=== PATIENT | male | born 2000 | race Caucasian/White ===

== ENCOUNTER 2020-01-11 16:53 | Emergency (ER) | payer BC, MEDICAID ==
[~2020-01-11] VITALS: Ht 182 cm; Wt 59.8 kg
[~2020-01-11 16:53] MED LIST: ACHD5005 PO; CYCL5TAB PO
--- NOTE | 2020-01-11 17:22 | ED Cough/URI ---
General Stated Complaint: SOA / BODY ACHES Source: patient Exam Limitations: no limitations History of Present Illness Date Seen by Provider: Jan 11, 2020 Time Seen by Provider: 17:14 Initial Comments to ER with shortness of breath, headache,body aches that started 1.5 days ago. Sister was recently tested positive for COVID-19and he was exposed to her a few days before she was tested.. He is employed at [employer] in [place].he denies fevers. Timing/Duration: yesterday, getting worse Severity/Quality: dry cough Associated Symptoms: cough, nasal congestion, shortness of breath Allergies and Home Medications Allergies Coded Allergies: No Known Drug Allergies (Unverified , 02/16/15) Home Medications Cyclobenzaprine HCl 5 Mg Tablet, 0.5-1 TAB PO Q8H PRN for SPASMS Prescribed by: GADIEL YAO on 02/16/151831 Hydrocodone Bit/Acetaminophen 1 Each Tablet, 1 EACH PO Q4H PRN for PAIN Prescribed by: GADIEL YAO on 02/16/151831 Patient Home Medication List Home Medication List Reviewed: Yes Review of Systems Review of Systems Constitutional: see HPI, chills, malaise, weakness Respiratory: see HPI, cough, short of breath Cardiovascular: no symptoms reported Genitourinary: no symptoms reported Musculoskeletal: no symptoms reported Skin: no symptoms reported Psychiatric/Neurological: No Symptoms Reported Hematologic/Lymphatic: No Symptoms Reported Past Sdiltud-Famjgd-Ppqbcv Hx Immunizations Up To Date Tetanus Booster (TDap): Unknown Family Medical History No Pertinent Family Hx Physical Exam Capillary Refill : Height: 5'8" Weight: 138lbs. oz. [id number]; BMI Method: General Appearance: WD/WN, no apparent distress, other (heart rate is in the 90s, oxygen saturation 97-98% on room air no accessory muscle use or tachypnea) HEENT: PERRL/EOMI, normal ENT inspection Neck: non-tender, full range of motion Respiratory: lungs clear, normal breath sounds, no respiratory distress, no accessory muscle use Cardiovascular: regular rate, rhythm, no murmur Gastrointestinal: normal bowel sounds, non tender, soft Neurologic/Psychiatric: alert, normal mood/affect, oriented x 3 Skin: normal color, warm/dry Progress/Results/Core Measures Suspected Sepsis SIRS Temperature: Pulse: Respiratory Rate: Laboratory Tests 01/11/20 17:09: Blood Pressure / Mean: Laboratory Tests 01/11/20 17:09: Results/Orders Lab Results Laboratory Tests Test 01/11/20 17:09 Range/Units My Orders Orders - MARKEL BYRNES APRN Cbc With Automated Diff (01/11/20 17:12) Comprehensive Metabolic Panel (01/11/20 17:12) Hs C Reactive Protein (01/11/20 17:12) Fibrin Degradation Products (01/11/20 17:12) Chest 1 View, Ap/Pa Only (01/11/20 17:12) Coronavirus Sars-Cov-2 So 2018 (01/11/20 17:12) Vital Signs/I&O Capillary Refill : Departure Impression Primary Impression: Viral syndrome Disposition: HOME, SELF-CARE Condition: Stable Departure-Patient Inst. Decision time for Depature: 17:20 Referrals: NO,LOCAL PHYSICIAN (PCP/Family) Primary Care Physician Patient Instructions: Coronavirus Disease 2019 (COVID-19) (DC), Viral Syndrome (DC) Add. Discharge Instructions: Tylenol for fevers and body aches. If that doesnt sufficiently control your symptoms you can add ibuprofen. Drink plenty of fluids. Return to ER for any worsening or other concerns. Stay home from work and away from family/friends/the general public until all three of these things are true: - It has been at least 10 days since your symptoms first started, AND - You are fever-free for 24 hours, without using fever reducing medicine, AND - Your symptoms of COVID-19 are better Work/School Note: Work Release Form Date Seen in the Emergency Department: Jan 11, 2020 Return to Work: Jan 25, 2020 MARKEL BYRNES APRN Jan 11, 2020 17:22
[2020-01-11 17:26] LABS: BASOPHILS % (AUTO) 0 % (0-10); EOSINOPHILS # (AUTO) 0.1 10^3/uL (0.0-0.3); EOSINOPHILS % (AUTO) 1 % (0-10); HEMATOCRIT 46 % (40-54); HEMOGLOBIN 15.9 G/DL (13.3-17.7); LYMPHOCYTES # (AUTO) 1.4 X 10^3 (1.0-4.0); LYMPHOCYTES % (AUTO) 14 % (12-44); MEAN CORPUSCULAR HEMOGLOBIN 29 PG (25-34); MEAN CORPUSCULAR HGB CONC 35 G/DL (32-36); MEAN CORPUSCULAR VOLUME 84 FL (80-99); MEAN PLATELET VOLUME 10.7 FL (7.4-10.4); MONOCYTES # (AUTO) 0.8 X 10^3 (0.0-1.0); MONOCYTES % (AUTO) 8 % (0-12); NEUTROPHILS # (AUTO) 7.4 X 10^3 (1.8-7.8); NEUTROPHILS % (AUTO) 77 % (42-75); PLATELET COUNT 249 10^3/uL (130-400); WHITE BLOOD COUNT 9.7 10^3/uL (4.3-11.0)
--- NOTE | 2020-01-11 17:37 | Diagnostic Imaging Report ---
Indication: Body aches. COMPARISON: None. FINDINGS: Single view the chest demonstrates clear lungs bilaterally. The heart is normal. There is no pneumothorax. Osseous structures are normal. IMPRESSION: Negative chest Dictated by: Dictated on workstation # [id number]
[2020-01-11 17:41] LABS: ALANINE AMINOTRANSFERASE 12 U/L (0-55); ALBUMIN 4.7 GM/DL (3.2-4.5); ALKALINE PHOSPHATASE 30 U/L (40-136); BILIRUBIN,TOTAL 0.8 MG/DL (0.1-1.0); BUN/CREATININE RATIO 21; CALCIUM 9.4 MG/DL (8.5-10.1); CARBON DIOXIDE 19 MMOL/L (21-32); CHLORIDE 107 MMOL/L (98-107); CREATININE SERUM 1.04 MG/DL (0.60-1.30); GFR ESTIMATED > 60; GLUCOSE 137 MG/DL (70-105); POTASSIUM 4.1 MMOL/L (3.6-5.0); SODIUM 141 MMOL/L (135-145); TOTAL PROTEIN 7.7 GM/DL (6.4-8.2)
[2020-01-11 18:09] VITALS: BP 117/88
--- NOTE | 2020-01-11 18:14 | NUR ---
LAB HRE TO DRAW 2ND BLOOD CULTURE.
== END 2020-01-11 18:15 | disposition home or self-care (01) ==
LOC: EDUNIT# 16:53 → ER 16:54
DX: B34.9 Viral infection, unspecified (principal); Z20.828 Contact with and (suspected) exposure to other viral communicable diseases
CPT/HCPCS: 71045; 80053; 85025; 85379; 86141; 99282; U0002; 36415; 87635